=== PATIENT | female | born 1990 | race Caucasian/White ===

== ENCOUNTER 2018-02-17 11:23 | Emergency (ER) | payer OTHER ==
[~2018-02-17] VITALS: Ht 165.1 cm; Wt 99.8 kg
[2018-02-17 11:29] VITALS: Ht 165.1 cm; Wt 99.8 kg
[2018-02-17 13:31] VITALS: BP 135/77
== END 2018-02-17 13:31 | disposition home or self-care (01) ==
LOC: ED 11:23
DX: S93.401A Sprain of unspecified ligament of right ankle, initial encounter (principal); J45.909 Unspecified asthma, uncomplicated; Z98.890 Other specified postprocedural states; X50.1XXA Overexertion from prolonged static or awkward postures, initial encounter; Y93.89 Activity, other specified; Y92.89 Other specified places as the place of occurrence of the external cause; Y99.8 Other external cause status
CPT/HCPCS: Q0092

== ENCOUNTER 2019-06-12 10:00 | Emergency (ER) | payer OTHER ==
[~2019-06-12] VITALS: Ht 162.6 cm; Wt 108.0 kg
[2019-06-12 10:05] VITALS: Ht 162.6 cm; Wt 108.0 kg
[2019-06-12 10:35] VITALS: BP 93/47
== END 2019-06-12 10:45 | disposition home or self-care (01) ==
LOC: ED 10:00
DX: O20.9 Hemorrhage in early pregnancy, unspecified (principal); Z3A.00 Weeks of gestation of pregnancy not specified; J45.909 Unspecified asthma, uncomplicated; Z98.890 Other specified postprocedural states